=== PATIENT | male | born 1990 | race African-American/Black ===

== ENCOUNTER 2017-12-18 11:22 | Inpatient (IN) ==
[2017-12-18] MEDS ORDERED: ONDANSETRON 4 MG/2 ML VIAL IV STA (12:15)
[2017-12-18] MEDS ORDERED: HYDROmorphone 2 MG/1 ML VIAL IV STA ×3 (12:15→15:08)
[2017-12-18] MEDS ORDERED: SODIUM CHLORIDE 0.9% 1,000 ML IV STA (12:15)
[2017-12-18 12:47] LABS: Basophils # 0.1 10*3/uL (0.0-0.2); Basophils % 0.5 % (0.0-0.8); Eosinophils # 0.1 10*3/uL (0.0-0.87); Eosinophils % 0.6 % (0.00-10.9); Hematocrit 33.2 VOL% (42.0-52.0); Immature Granulocytes % 0.9 %; Immature Granulocytes Absolute 0.15 #; Lymphocytes # 2.3 10*3/uL (1.4-4.0); Lymphocytes % 12.9 % (21.2-54.2); Mean Corpuscular HGB Conc 36.1 GM/DL (32-36); Mean Corpuscular Hemoglobin 28 PG (27-34); Mean Corpuscular Volume 78.5 FL (87-102); Mean Platelet Volume 10.6 FL (9.6-12.0); Monocytes # 1.2 10*3/uL (0.11-0.8); Monocytes % 6.5 % (1.7-12.7); NRBC # 0.32 10*3/uL; Neutrophils # 13.8 10*3/uL (1.4-7.4); Neutrophils % 78.6 % (38.7-73.9); Platelet Count 277 T/CUMM (130-400); Red Blood Count 4.23 MC/CUMM (3.8-5.5); Red Cell Distribution Width 17.6 % (9.3-17.3); White Blood Count 17.6 T/CUMM (4-12)
[2017-12-18 13:11] LABS: Albumin 4.3 G/DL (3.4-5.0); Bilirubin,Total 1.5 MG/DL (0.2-1.0); Calcium 8.9 MG/DL (8.5-10.1); Osmolality,Calculated 272.7 MOS/KG (273-304); Potassium 4.1 MMOL/L (3.5-5.1); Total Protein 8.7 G/DL (6.4-8.3)
[2017-12-18] MEDS ORDERED: FOLIC ACID 1 MG TABLET PO SCH (17:00)
[2017-12-18] MEDS: HYDROmorphone 2 MG/1 ML VIAL IV PRN ×3 (17:54→23:43)
[2017-12-18] MEDS: SODIUM CHLORIDE 0.9% 1,000 ML IV SCH (18:00)
[2017-12-18] MEDS: HYDROXYUREA 500 MG CAPSULE PO SCH (20:48)
[2017-12-19] MEDS: HYDROmorphone 2 MG/1 ML VIAL IV PRN ×5 (02:59→19:19)
[2017-12-19] MEDS: SODIUM CHLORIDE 0.9% 1,000 ML IV SCH ×4 (03:03→19:37)
[2017-12-19 05:15] LABS: Basophils # 0.1 10*3/uL (0.0-0.2); Basophils % 0.4 % (0.0-0.8); Eosinophils % 0.2 % (0.00-10.9); Hematocrit 30.6 VOL% (42.0-52.0); Hemoglobin 10.9 GM/DL (14.0-18.0); Immature Granulocytes % 0.8 %; Immature Granulocytes Absolute 0.15 #; Lymphocytes # 3.7 10*3/uL (1.4-4.0); Lymphocytes % 19.3 % (21.2-54.2); Mean Corpuscular HGB Conc 35.6 GM/DL (32-36); Mean Corpuscular Hemoglobin 28 PG (27-34); Mean Corpuscular Volume 77.1 FL (87-102); Mean Platelet Volume 10.6 FL (9.6-12.0); Monocytes % 10.4 % (1.7-12.7); NRBC # 0.41 10*3/uL; Neutrophils # 13.1 10*3/uL (1.4-7.4); Neutrophils % 68.9 % (38.7-73.9); Platelet Count 221 T/CUMM (130-400); Red Blood Count 3.97 MC/CUMM (3.8-5.5); Red Cell Distribution Width 17.6 % (9.3-17.3)
[2017-12-19 05:37] LABS: Albumin 3.6 G/DL (3.4-5.0); Bilirubin,Total 2.3 MG/DL (0.2-1.0); Calcium 8.3 MG/DL (8.5-10.1); Potassium 4.2 MMOL/L (3.5-5.1); Risk Ratio 1.48; Total Protein 7.6 G/DL (6.4-8.3); VLDL CHOLESTEROL 6.4 MG/DL
[2017-12-19] MEDS ORDERED: INFLUENZA VIRUS VACCINE 0.5 ML SYRINGE IM ONE (07:02)
[2017-12-19] MEDS ORDERED: ACETAMINOPHEN 325 MG TABLET PO PRN (08:22)
[2017-12-19] MEDS: PANTOPRAZOLE 40 MG TABLET PO SCH (08:37)
[2017-12-19] MEDS: FOLIC ACID 1 MG TABLET PO SCH (08:37)
[2017-12-19] MEDS: HYDROXYUREA 500 MG CAPSULE PO SCH ×2 (08:37→20:19)
[2017-12-19] MEDS: ONDANSETRON 4 MG/2 ML VIAL IV PRN ×2 (08:47→14:48)
[2017-12-19] MEDS: MAGNESIUM HYDROXIDE SUSP 30 ML UDCUP PO PRN (10:55)
[2017-12-19] MEDS: LEVOFLOXACIN INJ 750 MG in PREMIX 1 EACH IV SCH (10:55)
[2017-12-19] MEDS: IBUPROFEN 800 MG TABLET PO SCH ×3 (10:55→20:19)
[2017-12-19] MEDS ORDERED: hydrOXYzine HCL 25 MG TABLET PO PRN (15:36)
[2017-12-20] MEDS: SODIUM CHLORIDE 0.9% 1,000 ML IV SCH ×3 (03:31→22:15)
[2017-12-20] MEDS: HYDROmorphone 2 MG/1 ML VIAL IV PRN ×2 (04:29→19:36)
[2017-12-20 04:56] LABS: Basophils # 0.1 10*3/uL (0.0-0.2); Basophils % 0.4 % (0.0-0.8); Eosinophils # 0.4 10*3/uL (0.0-0.87); Eosinophils % 2.4 % (0.00-10.9); Hematocrit 27.7 VOL% (42.0-52.0); Hemoglobin 9.9 GM/DL (14.0-18.0); Immature Granulocytes % 0.8 %; Immature Granulocytes Absolute 0.12 #; Lymphocytes # 2.8 10*3/uL (1.4-4.0); Lymphocytes % 18.4 % (21.2-54.2); Mean Corpuscular HGB Conc 35.7 GM/DL (32-36); Mean Corpuscular Hemoglobin 28 PG (27-34); Mean Corpuscular Volume 78.5 FL (87-102); Mean Platelet Volume 10.8 FL (9.6-12.0); Monocytes # 0.9 10*3/uL (0.11-0.8); Monocytes % 5.8 % (1.7-12.7); Neutrophils % 72.2 % (38.7-73.9); Platelet Count 123 T/CUMM (130-400); Red Blood Count 3.53 MC/CUMM (3.8-5.5); Red Cell Distribution Width 18.6 % (9.3-17.3); White Blood Count 15.2 T/CUMM (4-12)
[2017-12-20 05:19] LABS: Albumin 3.1 G/DL (3.4-5.0); Bilirubin,Total 2.9 MG/DL (0.2-1.0); Calcium 8.4 MG/DL (8.5-10.1); Osmolality,Calculated 277.4 MOS/KG (273-304); Potassium 4.2 MMOL/L (3.5-5.1); Total Protein 7.1 G/DL (6.4-8.3)
[2017-12-20 06:55] LABS: Microcytosis 2+
[2017-12-20 06:56] LABS: Schistocytes Few; Sickle Cells Few; Target Cells 1+
[2017-12-20 06:57] LABS: Poikilocytosis 1+
[2017-12-20 06:58] LABS: Helmet Cells Few; Tear Drop Cells Few
[2017-12-20] MEDS: MAGNESIUM HYDROXIDE SUSP 30 ML UDCUP PO PRN (07:06)
[2017-12-20] MEDS: FOLIC ACID 1 MG TABLET PO SCH (08:19)
[2017-12-20] MEDS: PANTOPRAZOLE 40 MG TABLET PO SCH (08:19)
[2017-12-20] MEDS: IBUPROFEN 800 MG TABLET PO SCH ×3 (08:19→20:38)
[2017-12-20] MEDS: HYDROXYUREA 500 MG CAPSULE PO SCH ×2 (08:19→20:38)
[2017-12-20] MEDS: LEVOFLOXACIN INJ 750 MG in PREMIX 1 EACH IV SCH (08:19)
[2017-12-20] MEDS: ACETAMINOPHEN 325 MG TABLET PO PRN ×2 (11:56→17:52)
[2017-12-20] MEDS: FLUTICASONE 50 MCG NASAL SPRAY 16 GM BOTTLE BOTH NARES SCH (15:18)
[2017-12-21] MEDS: HYDROmorphone 2 MG/1 ML VIAL IV PRN ×3 (05:40→23:36)
[2017-12-21] MEDS: ONDANSETRON 4 MG/2 ML VIAL IV PRN (05:45)
[2017-12-21] MEDS: SODIUM CHLORIDE 0.9% 1,000 ML IV SCH ×3 (05:46→23:35)
[2017-12-21 06:41] LABS: Basophils # 0.1 10*3/uL (0.0-0.2); Basophils % 0.5 % (0.0-0.8); Eosinophils # 0.5 10*3/uL (0.0-0.87); Hematocrit 25.8 VOL% (42.0-52.0); Hemoglobin 9.3 GM/DL (14.0-18.0); Immature Granulocytes % 0.8 %; Immature Granulocytes Absolute 0.15 #; Lymphocytes # 2.7 10*3/uL (1.4-4.0); Lymphocytes % 15.1 % (21.2-54.2); Mean Corpuscular Hemoglobin 27 PG (27-34); Mean Corpuscular Volume 75.7 FL (87-102); Mean Platelet Volume 11.6 FL (9.6-12.0); Monocytes # 1.3 10*3/uL (0.11-0.8); Monocytes % 7.6 % (1.7-12.7); NRBC # 0.14 10*3/uL; Platelet Count 188 T/CUMM (130-400); Red Blood Count 3.41 MC/CUMM (3.8-5.5); Red Cell Distribution Width 18.6 % (9.3-17.3); White Blood Count 17.7 T/CUMM (4-12)
[2017-12-21 06:50] LABS: Albumin 3.1 G/DL (3.4-5.0); Calcium 8.4 MG/DL (8.5-10.1); Osmolality,Calculated 276.4 MOS/KG (273-304); Potassium 4.1 MMOL/L (3.5-5.1); Total Protein 7.2 G/DL (6.4-8.3)
[2017-12-21] MEDS: FLUTICASONE 50 MCG NASAL SPRAY 16 GM BOTTLE BOTH NARES SCH (08:14)
[2017-12-21] MEDS: IBUPROFEN 800 MG TABLET PO SCH ×3 (08:14→20:44)
[2017-12-21] MEDS: HYDROXYUREA 500 MG CAPSULE PO SCH (08:15)
[2017-12-21] MEDS: FOLIC ACID 1 MG TABLET PO SCH (08:15)
[2017-12-21] MEDS: LEVOFLOXACIN INJ 750 MG in PREMIX 1 EACH IV SCH (08:15)
[2017-12-21] MEDS: PANTOPRAZOLE 40 MG TABLET PO SCH (08:48)
[2017-12-21] MEDS ORDERED: BUTALBITAL/ACETAMIN/CAFFEINE 50-325-40 MG TABLET PO ONE (09:48)
[2017-12-21] MEDS ORDERED: BUTALBITAL/ACETAMIN/CAFFEINE 50-325-40 MG TABLET PO PRN (18:53)
[2017-12-22] MEDS: ONDANSETRON 4 MG/2 ML VIAL IV PRN (01:29)
[2017-12-22 06:09] LABS: Basophils # 0.1 10*3/uL (0.0-0.2); Basophils % 0.4 % (0.0-0.8); Eosinophils # 0.6 10*3/uL (0.0-0.87); Eosinophils % 3.8 % (0.00-10.9); Hematocrit 24.9 VOL% (42.0-52.0); Hemoglobin 8.8 GM/DL (14.0-18.0); Immature Granulocytes % 1.4 %; Immature Granulocytes Absolute 0.24 #; Lymphocytes # 4.7 10*3/uL (1.4-4.0); Lymphocytes % 28.4 % (21.2-54.2); Mean Corpuscular HGB Conc 35.3 GM/DL (32-36); Mean Corpuscular Hemoglobin 27 PG (27-34); Mean Corpuscular Volume 76.9 FL (87-102); Mean Platelet Volume 11.4 FL (9.6-12.0); Monocytes # 0.9 10*3/uL (0.11-0.8); Monocytes % 5.4 % (1.7-12.7); NRBC # 0.21 10*3/uL; Neutrophils # 10.1 10*3/uL (1.4-7.4); Neutrophils % 60.6 % (38.7-73.9); Platelet Count 207 T/CUMM (130-400); Red Blood Count 3.24 MC/CUMM (3.8-5.5); White Blood Count 16.7 T/CUMM (4-12)
[2017-12-22 06:43] LABS: Albumin 2.9 G/DL (3.4-5.0); Bilirubin,Total 3.4 MG/DL (0.2-1.0); Calcium 8.2 MG/DL (8.5-10.1); Osmolality,Calculated 278.3 MOS/KG (273-304); Potassium 4.1 MMOL/L (3.5-5.1); Total Protein 7.1 G/DL (6.4-8.3)
[2017-12-22] MEDS: HYDROmorphone 2 MG/1 ML VIAL IV PRN (07:29)
[2017-12-22 08:16] VITALS: BP 118/77
[2017-12-22] MEDS: IBUPROFEN 800 MG TABLET PO SCH (08:42)
[2017-12-22] MEDS: LEVOFLOXACIN INJ 750 MG in PREMIX 1 EACH IV SCH (08:43)
[2017-12-22] MEDS: PANTOPRAZOLE 40 MG TABLET PO SCH (08:43)
[2017-12-22] MEDS: FOLIC ACID 1 MG TABLET PO SCH (08:43)
[2017-12-22] MEDS: FLUTICASONE 50 MCG NASAL SPRAY 16 GM BOTTLE BOTH NARES SCH (08:44)
== END 2017-12-22 12:05 | disposition home or self-care (01) | DRG 812 ==
LOC: N.ED 11:22 → SUATTDRO 15:36 → N.EDINP 15:36 → N.4E 16:34
PROVIDERS: ADMIT Internal Medicine; ATTEND Family Medicine

== ENCOUNTER 2020-02-25 08:57 | Observation (INO) ==
[2020-02-25] MEDS ORDERED: SODIUM CHLORIDE 0.9% 1,000 ML IV STA (10:43)
[2020-02-25] MEDS ORDERED: ONDANSETRON 4 MG/2 ML VIAL IV STA (10:43)
[2020-02-25] MEDS ORDERED: HYDROmorphone 2 MG/1 ML VIAL IV STA (10:43)
[2020-02-25 10:48] LABS: Basophils # 0.1 10*3/uL (0.0-0.2); Basophils % 0.5 % (0.0-0.8); Eosinophils # 0.2 10*3/uL (0.0-0.87); Eosinophils % 1.6 % (0.00-10.9); Hematocrit 35.6 VOL% (42.0-52.0); Hemoglobin 13.1 GM/DL (14.0-18.0); Immature Granulocytes % 0.6 %; Immature Granulocytes Absolute 0.09 #; Lymphocytes # 2.9 10*3/uL (1.4-4.0); Lymphocytes % 20.3 % (21.2-54.2); Mean Corpuscular HGB Conc 36.8 GM/DL (32-36); Mean Corpuscular Volume 77.9 FL (87-102); Mean Platelet Volume 10.4 FL (9.6-12.0); Monocytes % 8.4 % (1.7-12.7); NRBC # 0.15 10*3/uL; Neutrophils % 68.6 % (38.7-73.9); Platelet Count 295 T/CUMM (130-400); Red Blood Count 4.57 MC/CUMM (3.8-5.5); Red Cell Distribution Width 17.3 % (9.3-17.3); White Blood Count 14.2 T/CUMM (4-12)
[2020-02-25 11:01] LABS: Albumin 3.7 G/DL (3.4-5.0); Bilirubin,Total 2.3 MG/DL (0.2-1.0); Calcium 9.1 MG/DL (8.5-10.1); Osmolality,Calculated 273.5 MOS/KG (273-304); Total Protein 8.4 G/DL (6.4-8.3)
[2020-02-25 11:06] LABS: Bilirubin,Urine Negative (Negative); Blood, Urine Negative (Negative); Glucose,Urine (UA) Negative (Negative); Ketones,Urine Negative (Negative); Mucus,Urine Occasional /LPF (Occasional); Nitrite,Urine Negative (Negative); Protein,Urine Negative; Urine Appearance CLEAR (Clear); Urine Color Yellow (Yellow); Urine Specific Gravity 1.009 (1.001-1.035)
[2020-02-25] MEDS ORDERED: hydrALAZINE 20 MG/1 ML VIAL IV PRN (12:43)
[2020-02-25] MEDS ORDERED: ONDANSETRON 4 MG/2 ML VIAL IV PRN (12:43)
[2020-02-25] MEDS ORDERED: DOCUSATE SODIUM 100 MG CAPSULE PO PRN (12:43)
[2020-02-25] MEDS ORDERED: GLUCAGON 1 MG VIAL IM PRN (12:43)
[2020-02-25] MEDS ORDERED: DEXTROSE 50% 25 GM/50 ML VIAL IV PRN (12:43)
[2020-02-25] MEDS ORDERED: NALOXONE 0.4 MG/ML VIAL IV PRN (13:47)
[2020-02-25] MEDS ORDERED: HYDROmorphone PCA 30 MG/30 ML SYRINGE IV SCH (14:00)
[2020-02-25] MEDS ORDERED: MAGNESIUM HYDROXIDE SUSP 30 ML UDCUP PO PRN (14:49)
[2020-02-25] MEDS: SODIUM CHLORIDE 0.9% 1,000 ML IV SCH ×2 (15:27→23:29)
[2020-02-25] MEDS: ACETAMINOPHEN 325 MG TABLET PO PRN (20:07)
[2020-02-25] MEDS: ENOXAPARIN 40 MG/0.4 ML SYRINGE SUBCUT SCH (20:07)
[2020-02-25] MEDS: POLYETHYLENE GLYCOL POWDER 17 GM PACK PO SCH (20:07)
[2020-02-25] MEDS: IBUPROFEN 600 MG TABLET PO PRN (23:28)
[2020-02-26 05:43] LABS: Basophils # 0.1 10*3/uL (0.0-0.2); Basophils % 0.9 % (0.0-0.8); Eosinophils # 0.4 10*3/uL (0.0-0.87); Eosinophils % 3.2 % (0.00-10.9); Hematocrit 31.7 VOL% (42.0-52.0); Hemoglobin 11.6 GM/DL (14.0-18.0); Immature Granulocytes % 0.4 %; Immature Granulocytes Absolute 0.05 #; Lymphocytes # 5.4 10*3/uL (1.4-4.0); Lymphocytes % 45.7 % (21.2-54.2); Mean Corpuscular HGB Conc 36.6 GM/DL (32-36); Mean Corpuscular Volume 77.9 FL (87-102); Mean Platelet Volume 10.5 FL (9.6-12.0); Monocytes % 11.1 % (1.7-12.7); NRBC # 0.13 10*3/uL; Neutrophils % 38.7 % (38.7-73.9); Platelet Count 261 T/CUMM (130-400); Red Blood Count 4.07 MC/CUMM (3.8-5.5); Red Cell Distribution Width 17.2 % (9.3-17.3); White Blood Count 11.8 T/CUMM (4-12)
[2020-02-26 06:12] LABS: Eosinophils 9 % (0-10); Hypochromasia 1+; Lymphocytes 45 % (20-55); Nucleated Red Blood Cells 3 (0-5); Platelet Estimate Adequate; Segmented Neutrophils 35 % (50-85); Target Cells Few; Total Cells Counted 100
[2020-02-26 06:13] LABS: Atypical Lymphocytes Few
[2020-02-26 06:18] LABS: Calcium 8.3 MG/DL (8.5-10.1); Osmolality,Calculated 276.4 MOS/KG (273-304); Risk Ratio 2.38; VLDL CHOLESTEROL 18.6 MG/DL
[2020-02-26 08:43] LABS: Bilirubin,Urine Negative (Negative); Blood, Urine Negative (Negative); Glucose,Urine (UA) Negative (Negative); Ketones,Urine Negative (Negative); Nitrite,Urine Negative (Negative); Protein,Urine Negative; Urine Appearance CLEAR (Clear); Urine Color Yellow (Yellow); Urine Specific Gravity 1.004 (1.001-1.035); Urine Urobilinogen < 2.0 EU/DL (0.2-1.0); WBC,Urine 1 /HPF (0-6)
[2020-02-26] MEDS ORDERED: PANTOPRAZOLE 40 MG TABLET PO SCH (09:00)
[2020-02-26] MEDS ORDERED: HYDROmorphone PCA 30 MG/30 ML SYRINGE IV SCH (14:00)
[2020-02-26] MEDS: IBUPROFEN 600 MG TABLET PO PRN ×2 (14:14→20:28)
[2020-02-26] MEDS: SODIUM CHLORIDE 0.9% 1,000 ML IV SCH ×3 (14:16→23:46)
[2020-02-26] MEDS: ACETAMINOPHEN 325 MG TABLET PO PRN (17:51)
[2020-02-26] MEDS: POLYETHYLENE GLYCOL POWDER 17 GM PACK PO SCH (20:27)
[2020-02-26] MEDS: ENOXAPARIN 40 MG/0.4 ML SYRINGE SUBCUT SCH (20:27)
[2020-02-27 06:07] LABS: Basophils # 0.1 10*3/uL (0.0-0.2); Basophils % 0.9 % (0.0-0.8); Eosinophils # 0.6 10*3/uL (0.0-0.87); Eosinophils % 6.2 % (0.00-10.9); Hematocrit 32.7 VOL% (42.0-52.0); Hemoglobin 11.7 GM/DL (14.0-18.0); Immature Granulocytes % 0.4 %; Immature Granulocytes Absolute 0.04 #; Lymphocytes # 4.8 10*3/uL (1.4-4.0); Lymphocytes % 49.6 % (21.2-54.2); Mean Corpuscular HGB Conc 35.8 GM/DL (32-36); Mean Corpuscular Volume 78.2 FL (87-102); Mean Platelet Volume 11.3 FL (9.6-12.0); Monocytes % 8.7 % (1.7-12.7); Neutrophils % 34.2 % (38.7-73.9); Platelet Count 310 T/CUMM (130-400); Red Blood Count 4.18 MC/CUMM (3.8-5.5); Red Cell Distribution Width 17.6 % (9.3-17.3); White Blood Count 9.6 T/CUMM (4-12)
[2020-02-27 06:29] LABS: Calcium 8.4 MG/DL (8.5-10.1)
[2020-02-27 07:22] LABS: Atypical Lymphocytes Few; Eosinophils 6 % (0-10); Lymphocytes 49 % (20-55); Nucleated Red Blood Cells 1 (0-5); Segmented Neutrophils 37 % (50-85); Total Cells Counted 100
[2020-02-27 07:23] LABS: Hypochromasia 2+; Microcytosis 1+
[2020-02-27 07:24] LABS: Anisocytosis 1+; Polychromasia Slight; Target Cells Few
[2020-02-27 07:25] LABS: Sickle Cells Slight
[2020-02-27 07:26] LABS: Platelet Estimate Normal
[2020-02-27 07:39] VITALS: BP 114/49
[2020-02-27] MEDS: SODIUM CHLORIDE 0.9% 1,000 ML IV SCH (08:27)
== END 2020-02-27 11:20 | disposition home or self-care (01) ==
LOC: N.ED 08:57 → N.EDINP 08:57 → SUATTDRO 12:43 → N.EDINP 14:15 → N.5E 14:26
PROVIDERS: ADMIT Internal Medicine; ATTEND Internal Medicine